=== PATIENT | female | born 1945 | race Caucasian/White ===

== ENCOUNTER 2022-07-24 07:42 | Day surgery (SDC) | payer OTHER, BC ==
[2022-07-19 13:41] VITALS: BMI 22.8
[2022-07-24] MEDS ORDERED: DEXAMETHASONE SOD PHOSPHATE 4 MG/1 ML VIAL ONE ×2 (08:53→09:40)
[2022-07-24] MEDS ORDERED: ONDANSETRON 4 MG/2 ML VIAL ONE ×2 (08:53→09:40)
[2022-07-24] MEDS ORDERED: PROPOFOL 40 ML ONE (08:53)
[2022-07-24] MEDS ORDERED: BUPIVACAINE HCL/EPINEPHRINE/PF 30 ML VIAL IJ ONE (09:27)
[2022-07-24] MEDS ORDERED: ceFAZolin SODIUM 1 GM VIAL ONE (09:50)
[2022-07-24] MEDS ORDERED: BUPIVACAINE 0.25% /EPI 1:200,000 10 ML VIAL NR ONE (10:00)
[2022-07-24 11:22] VITALS: RESP 18; TEMP 98.4
[2022-07-24] MEDS ORDERED: ONDANSETRON 4 MG/2 ML VIAL IVPUSH PRN (11:43)
[2022-07-24] MEDS ORDERED: oxyCODONE HCL 5 MG TABLET PO PRN ×2 (11:43)
[2022-07-24 11:44] VITALS: BP 115/57; PULSE 84
[2022-07-24] MEDS ORDERED: LACTATED RINGERS SOLUTION 1,000 ML IV SCH (11:45)
== END 2022-07-24 11:45 | disposition home or self-care (01) ==
LOC: FASU 07:42
PROVIDERS: ATTEND Orthopaedic Surgery
PROC: 0SQC4ZZ Repair Right Knee Joint, Percutaneous Endoscopic Approach (ICD-10-PCS; principal; 2022-07-24 10:00)
DX: S83.281A Other tear of lateral meniscus, current injury, right knee, initial encounter (principal); X58.XXXA Exposure to other specified factors, initial encounter; Y93.9 Activity, unspecified; Y92.9 Unspecified place or not applicable
CPT/HCPCS: 94760; C1713